=== PATIENT | male | born 1980 | race Caucasian/White ===

== ENCOUNTER 2020-06-15 08:32 | Outpatient (CLI) | payer BC ==
--- NOTE | 2020-06-15 10:44 | RAD ---
CHEST 2 VIEWS: Date: 06/15/2020 HISTORY: Chest pain. Arthropathic psoriasis. FINDINGS: Heart size is normal. The lungs are clear. IMPRESSION: No significant acute intrathoracic disease. POS: OFF
== END 2020-06-15 08:33 | disposition home or self-care (01) ==
LOC: SCSRAD 08:32
PROVIDERS: ATTEND Internal Medicine Rheumatology
DX: L40.50 Arthropathic psoriasis, unspecified (principal)
CPT/HCPCS: 71046

== ENCOUNTER 2021-07-14 13:16 | Outpatient (CLI) | payer OTHER | END 2021-07-14 13:17 | disposition home or self-care (01) | LOC: SCSRAD 13:16 | PROVIDERS: ATTEND Internal Medicine Rheumatology | DX: L40.50 Arthropathic psoriasis, unspecified (principal) | CPT/HCPCS: 71046 ==